=== PATIENT | female | born 1990 | race Caucasian/White ===

== ENCOUNTER 2020-08-08 14:11 | Emergency (ER) | payer OTHER ==
[~2020-08-08 14:11] MED LIST: NAPROXEN500 MG PO
[2020-08-08] MEDS ORDERED: BACTRIM DS TAB1 EACH PO (15:23)
== END 2020-08-08 16:03 | disposition home or self-care (01) ==
LOC: FER 14:11
DX: T81.41XA Infection following a procedure, superficial incisional surgical site, initial encounter (principal); L03.311 Cellulitis of abdominal wall; F17.210 Nicotine dependence, cigarettes, uncomplicated; Z90.49 Acquired absence of other specified parts of digestive tract; Z88.0 Allergy status to penicillin; Z98.51 Tubal ligation status; Y83.8 Other surgical procedures as the cause of abnormal reaction of the patient, or of later complication, without mention of misadventure at the time of the procedure
CPT/HCPCS: 87070; 87077; 87186; 87205; 99283

== ENCOUNTER 2020-11-09 13:14 | Emergency (ER) | payer OTHER ==
[~2020-11-09 13:14] MED LIST changes: +BACTRIM DS TAB1 EACH PO
[2020-11-09 13:41] LABS: BASOPHIL 0.4 % (0-2); EOSINOPHIL 3.6 % (0-5); HCT 42.1 % (37.0-47.0); HGB 14.2 g/dl (12.5-16.0); LYMPHOCYTE 27.5 % (15-48); MCH 28.9 pg (25.0-31.0); MCHC 33.7 g/dL (32.0-36.0); MCV 85.7 fL (78.0-100.0); MONOCYTE 6.3 % (0-12); MPV 10.4 fL (6.0-9.5); NEUTROPHIL 61.7 % (41-80); NRBC 0; PLT 319 K/uL (150-400); RBC 4.91 M/uL (4.20-5.40); RDW 13.8 % (11.5-14.0)
[2020-11-09 13:50] LABS: INR 1.04 (0.9-1.2); PROTHROMBIN TIME 12.9 SECONDS (11.4-13.6); PTT 34.5 SECONDS (22.2-34.7)
[2020-11-09 13:55] LABS: ALBUMIN 3.5 g/dL (3.4-5.0); BILIRUBIN - TOTAL 0.4 mg/dL (0.2-1.0); BUN/CREAT RATIO (CALC) 10.9 RATIO; CREATININE 0.55 mg/dL (0.51-0.95); GLOBULIN (CALCULATION) 4.1 g/dL; POTASSIUM 3.2 mmol/L (3.5-5.1); TOTAL PROTEIN 7.6 g/dL (6.4-8.2)
[2020-11-09 16:14] LABS: BILIRUBIN 1+ mg/dL (NEGATIVE); BLOOD NEGATIVE Ery/uL (NEGATIVE); GLUCOSE (U) NORMAL (NORMAL); HCG (URINE) SCREEN NEGATIVE (NEGATIVE); LEUKOCYTES TRACE Leu/uL (NEGATIVE); NITRITE NEGATIVE (NEGATIVE); PROTEIN 1+ mg/dL (NEGATIVE); SPECIFIC GRAVITY >=1.030 (1.001-1.030); UROBILINOGEN 0.2 mg/dL (0.2-1.0)
[2020-11-09 16:15] LABS: CLARITY HAZY (CLEAR); COLOR AMBER (YELLOW)
[2020-11-09 16:33] LABS: AMORPHOUS URATES CRYSTALS MODERATE; BACTERIA TRACE; URINARY WBC RARE
[2020-11-09] MEDS ORDERED: K-DUR20 MEQ PO ×2 (18:00→18:03)
[2020-11-09] MEDS ORDERED: OMEPRAZOLE40 MG PO (18:00)
[2020-11-09] MEDS ORDERED: ZOFRAN4 M1 PO ×2 (18:00→18:03)
[2020-11-09] MEDS ORDERED: CARAFATE1 GM PO ×2 (18:00→18:03)
[2020-11-09] MEDS ORDERED: PRILOSEC20 MG PO (18:03)
== END 2020-11-09 18:55 | disposition home or self-care (01) ==
LOC: FER 13:14
PROVIDERS: Emergency Medicine; Nurse Practitioner
DX: R07.89 Other chest pain (principal); R10.13 Epigastric pain; E87.6 Hypokalemia; R06.02 Shortness of breath; R11.0 Nausea; Z88.0 Allergy status to penicillin
CPT/HCPCS: 36415; 71045; 80053; 81001; 82553; 84484; 84703; 85025; 85610; 85730; 93005; J2405; J7030

== ENCOUNTER 2020-12-11 10:08 | Emergency (ER) | payer OTHER ==
[~2020-12-11 10:08] MED LIST changes: +CARAFATE1 GM PO; +K-DUR20 MEQ PO; +OMEPRAZOLE40 MG PO; +PRILOSEC20 MG PO; +ZOFRAN4 M1 PO
[2020-12-11 10:35] LABS: BASOPHIL 0.3 % (0-2); EOSINOPHIL 3.1 % (0-5); HGB 15.2 g/dl (12.5-16.0); LYMPHOCYTE 32.4 % (15-48); MCH 28.4 pg (25.0-31.0); MCHC 32.3 g/dL (32.0-36.0); MCV 87.7 fL (78.0-100.0); MONOCYTE 4.2 % (0-12); MPV 10.7 fL (6.0-9.5); NEUTROPHIL 59.5 % (41-80); NRBC 0; PLT 373 K/uL (150-400); RBC 5.36 M/uL (4.20-5.40); RDW 14.1 % (11.5-14.0); WBC 10.1 K/uL (4.0-10.5)
[2020-12-11 10:38] LABS: INR 1.02 (0.9-1.2); PROTHROMBIN TIME 12.7 SECONDS (11.4-13.6); PTT 38.4 SECONDS (22.2-34.7)
[2020-12-11 10:39] LABS: D-DIMER 0.45 ug/mLFEU (0.00-0.41)
[2020-12-11 10:59] LABS: ALBUMIN 3.9 g/dL (3.4-5.0); BILIRUBIN - TOTAL 0.4 mg/dL (0.2-1.0); BUN/CREAT RATIO (CALC) 10.2 RATIO; CREATININE 0.59 mg/dL (0.51-0.95); POTASSIUM 3.4 mmol/L (3.5-5.1); TOTAL PROTEIN 7.9 g/dL (6.4-8.2)
== END 2020-12-11 11:42 | disposition home or self-care (01) ==
LOC: FER 10:08
PROVIDERS: Emergency Medicine
DX: R07.89 Other chest pain (principal); R20.0 Anesthesia of skin; R06.02 Shortness of breath; F17.200 Nicotine dependence, unspecified, uncomplicated; Z88.0 Allergy status to penicillin
CPT/HCPCS: 36415; 71045; 80053; 84484; 85025; 85379; 85610; 85730; 93005